=== PATIENT | female | born 1975 | race Caucasian/White ===

== ENCOUNTER → 2017-01-17 | Outpatient (CLI) | payer OTHER ==
--- NOTE | 2017-01-17 14:32 | RAD ---
DATE: January 17, 2017 EXAM: BREAST LEFT, DIGITAL DIAGNOSTIC LT and LEFT BREAST SONOGRAPHY HISTORY: New pea-sized lump of the upper outer quadrant of the left breast. Patient had a screening mammogram on June 25, 2016 which was normal. COMPARISON: June 25, 2016 This study was interpreted with the benefit of Computerized Aided Detection (CAD). FINDINGS: The breast parenchyma shows scattered fibroglandular densities. There are no dominant suspicious masses, suspicious microcalcifications or evidence of architectural distortion. A metallic BB is placed on the palpable lump of the upper-outer quadrant of the left breast as indicated by the patient. No new focal mammographic abnormality is seen here. LEFT BREAST SONOGRAPHY Findings: High-resolution sonography of the palpable lump of the upper-outer quadrant of the left breast at the 2:00 position as indicated by the patient was performed. No focal sonographic abnormality is seen. No sebaceous cyst is identified. IMPRESSION: No focal mammographic or sonographic abnormality is seen within the left breast to correspond to the palpable lump of the 2:00 position of the left breast. Therefore, with regard to any palpable lump, follow-up should be clinical. Otherwise recommend routine screening mammography in one year. BI-RADS CATEGORY: 1 NEGATIVE RECOMMENDED FOLLOW-UP: CLIN FOLLOW UP IMAGING CLINICALLY INDICATED PQRS compliance statement: Patient information was entered into a reminder system with a target due date June 26, 2017 for the next screening mammogram. Mammography is a sensitive method for finding small breast cancers, but it does not detect them all and is not a substitute for careful clinical examination. A negative mammogram does not negate a clinically suspicious finding and should not result in delay in biopsying a clinically suspicious abnormality. "Our facility is accredited by the [employer] Mammography Program."
== END | disposition home or self-care (01) ==
LOC: MAMMO 12:51
PROVIDERS: ATTEND Nurse Practitioner
DX: N63 Unspecified lump in breast (principal)
CPT/HCPCS: 76641; G0206; 77065

== ENCOUNTER → 2020-01-16 | Outpatient (CLI) | payer OTHER ==
--- NOTE | 2020-01-16 14:11 | RAD ---
3 views of each foot 01/16/2020 12:00 AM Indication: Reason: HX OF FRACTURE ON RIGHT, HEEL PAIN ON LEFT / Spl. Instructions: / History: Comparison: None Findings: There is no acute fracture or dislocation. Articular surfaces are uninterupted and smooth. Soft tissues are unremarkable. Impression: No evidence of acute osseous abnormality. Electronically signed by: Luigi Ambrosio MD (01/16/2020 2:08 PM) [id number]
== END | disposition home or self-care (01) ==
LOC: DXRAD 12:07
PROVIDERS: ATTEND Podiatrist Foot & Ankle Surgery
DX: S92.211A Displaced fracture of cuboid bone of right foot, initial encounter for closed fracture (principal); X58.XXXA Exposure to other specified factors, initial encounter; Y93.89 Activity, other specified; Y92.89 Other specified places as the place of occurrence of the external cause; Y99.8 Other external cause status
CPT/HCPCS: 73630